=== PATIENT | male | born 1980 | race Caucasian/White ===

== ENCOUNTER 2020-09-19 00:23 | Emergency (ER) | payer OTHER ==
[~2020-09-19] VITALS: Ht 165.1 cm; Wt 101.2 kg
[2020-09-19 01:21] LABS: HEMATOCRIT 38.4 % (42.0-52.0); HEMOGLOBIN 13.5 gm/dL (14.0-18.0); MCH 37.7 pg (26.0-34.0); MCHC 35.2 g/dL (28.0-37.0); MCV 106.9 fL (80.0-100.0); MPV 7.7 fl. (7.2-11.1); RBC 3.59 mil/uL (4.50-6.00); RDW-CV 14.7 % (10.5-14.5)
[2020-09-19 01:29] LABS: CALCIUM 7.6 mg/dL (8.5-10.1); CREATININE 0.7 mg/dL (0.6-1.3); POTASSIUM 3.4 mmol/L (3.5-5.1)
[2020-09-19 01:33] LABS: ALBUMIN 3.4 g/dL (3.4-5.0); TOTAL BILIRUBIN 0.9 mg/dL (<0.1-1.0); TOTAL PROTEIN 7.4 g/dL (6.4-8.2)
[2020-09-19 01:50] LABS: ACETAMINOPHEN < 2 ug/mL (10-30); SALICYLATE < 2.8 mg/dL (2.8-20.0)
[2020-09-19 01:51] LABS: ALCOHOL 497 mg/dL (<10)
[2020-09-19 09:04] VITALS: BP 148/96
== END 2020-09-19 09:05 | disposition home or self-care (01) ==
LOC: M.ERS 00:23
PROVIDERS: Personal Emergency Response Attendant
DX: K85.20 Alcohol induced acute pancreatitis without necrosis or infection (principal); R10.13 Epigastric pain; F10.929 Alcohol use, unspecified with intoxication, unspecified